=== PATIENT | male | born 1990 | race Caucasian/White ===

== ENCOUNTER 2017-06-11 06:25 | Emergency (ER) | payer SELFPAY ==
--- NOTE | 2017-06-11 06:36 | EDM.PDOC ---
ED HPI GENERAL MEDICAL PROBLEM - General Stated Complaint: FACE PAIN Time Seen by Provider: 06/11/17 06:36 - History of Present Illness INITIAL COMMENTS - FREE TEXT/NARRATIVE: HISTORY AND PHYSICAL: History of present illness: Patient's 26-year-old white male presents for a concern of dental pain this is somewhat generalized patient states he is scheduled to have oral surgery and multiple tooth extractions related to periodontal and gentle dental disease he' s had no fever chills nausea vomiting no other complaints. Review of systems: As per history of present illness and below otherwise all systems reviewed and negative. Past medical history: As per history of present illness and as reviewed below otherwise noncontributory. Surgical history: As per history of present illness and as reviewed below otherwise noncontributory. Social history: No reported history of drug or alcohol abuse. Family history: As per history of present illness and as reviewed below otherwise noncontributory. Physical exam: HEENT: Atraumatic, normocephalic, pupils reactive, negative for conjunctival pallor or scleral icterus, mucous membranes moist, throat clear, neck supple, nontender, trachea midline. Patient has generally poor dentition with multiple dental caries Lungs: Clear to auscultation, breath sounds equal bilaterally, chest nontender. Heart: S1S2, regular, negative for clicks, rubs, or JVD. Abdomen: Soft, nondistended, nontender. Negative for masses or hepatosplenomegaly. Negative for costovertebral tenderness. Pelvis: Stable nontender. Genitourinary: Deferred. Rectal: Deferred. Extremities: Atraumatic, negative for cords or calf pain. Neurovascular unremarkable. Neuro: Awake, alert, oriented. Cranial nerves II through XII unremarkable. Cerebellum unremarkable. Motor and sensory unremarkable throughout. Exam nonfocal. Diagnostics: None Therapeutics: None Impression: #1 dentalgia #2 dental caries #3 rule out dental abscess Definitive disposition and diagnosis as appropriate pending reevaluation and review of above. - Related Data Allergies Allergy/AdvReac Type Severity Reaction Status Date / Time No Known Allergies Allergy Verified 11/04/16 10:13 Home Meds: Home Meds . [No Known Home Meds] 04/24/14 [History] Past Medical History HEENT History: Reports: None - Past Surgical History HEENT Surgical History: Reports: Adenoidectomy Social & Family History - Family History Family Medical History: Noncontributory - Tobacco Use Smoking Status *Q: Current Every Day Smoker Years of Tobacco use: 7 Packs/Tins Daily: 1 Used Tobacco, but Quit: Yes Month Tobacco Last Used: April Second Hand Smoke Exposure: No - Caffeine Use Caffeine Use: Reports: Soda Caffeine Use Comment: que villanueva 12 pack/day - Alcohol Use Days Per Week of Alcohol Use: 2 Number of Drinks Per Day: 7 Total Drinks Per Week: 14 - Recreational Drug Use Recreational Drug Use: No ED ROS GENERAL - Review of Systems Review Of Systems: ROS reveals no pertinent complaints other than HPI. ED EXAM, GENERAL - Physical Exam Exam: See Below (See dictation) Departure - Departure Time of Disposition: 06:35 Disposition: Home, Self-Care 01 Condition: Good Clinical Impression: Dentalgia, Dental caries, Dental infection - Discharge Information Referrals: PCP,None [Primary Care Provider] - Additional Instructions: The following information is given to patients seen in the emergency department who are being discharged to home. This information is to outline your options for follow-up care. We provide all patients seen in our emergency department with a follow-up referral. The need for follow-up, as well as the timing and circumstances, are variable depending upon the specifics of your emergency department visit. If you don't have a primary care physician on staff, we will provide you with a referral. We always advise you to contact your personal physician following an emergency department visit to inform them of the circumstance of the visit and for follow-up with them and/or the need for any referrals to a consulting specialist. The emergency department will also refer you to a specialist when appropriate. This referral assures that you have the opportunity for followup care with a specialist. All of these measure are taken in an effort to provide you with optimal care, which includes your followup. Under all circumstances we always encourage you to contact your private physician who remains a resource for coordinating your care. When calling for followup care, please make the office aware that this follow-up is from your recent emergency room visit. If for any reason you are refused follow-up, please contact the [facility] emergency department at and asked to speak to the emergency department charge nurse. Follow-up dentist/oral surgery is scheduled Augmentin is prescribed Motrin or Tylenol as directed return as needed as discussed]
[2017-06-11 06:40] VITALS: BP 125/64
== END 2017-06-11 06:49 | disposition home or self-care (01) ==
LOC: MW.ED 06:25
DX: K02.9 Dental caries, unspecified (principal); K04.7 Periapical abscess without sinus; F17.210 Nicotine dependence, cigarettes, uncomplicated; Z98.890 Other specified postprocedural states
CPT/HCPCS: 99282

== ENCOUNTER 2017-09-01 04:14 | Emergency (ER) | payer OTHER ==
--- NOTE | 2017-09-01 05:21 | EDM.PDOC ---
ED HPI GENERAL MEDICAL PROBLEM - General Chief Complaint: Upper Extremity Injury/Pain Stated Complaint: SHOULDERS LOCK UP Time Seen by Provider: 09/01/17 05:19 - History of Present Illness INITIAL COMMENTS - FREE TEXT/NARRATIVE: HISTORY AND PHYSICAL: History of present illness: Past 26-year-old male presents with concern of bilateral shoulder pain he denies trauma or other concern Review of systems: As per history of present illness and below otherwise all systems reviewed and negative. Past medical history: As per history of present illness and as reviewed below otherwise noncontributory. Surgical history: As per history of present illness and as reviewed below otherwise noncontributory. Social history: No reported history of drug or alcohol abuse. Family history: As per history of present illness and as reviewed below otherwise noncontributory. Physical exam: HEENT: Atraumatic, normocephalic, pupils reactive, negative for conjunctival pallor or scleral icterus, mucous membranes moist, throat clear, neck supple, nontender, trachea midline. Lungs: Clear to auscultation, breath sounds equal bilaterally, chest nontender. Heart: S1S2, regular, negative for clicks, rubs, or JVD. Abdomen: Soft, nondistended, nontender. Negative for masses or hepatosplenomegaly. Negative for costovertebral tenderness. Pelvis: Stable nontender. Genitourinary: Deferred. Rectal: Deferred. Extremities: Atraumatic, no gross deformity no point tenderness no crepitation CMS neurovascular exam unremarkable bilaterally Neuro: Awake, alert, oriented. Cranial nerves II through XII unremarkable. Cerebellum unremarkable. Motor and sensory unremarkable throughout. Exam nonfocal. Diagnostics: X-ray bilateral shoulder Therapeutics: Sling as directed Impression: #1 bilateral shoulder pain etiology be determined Definitive disposition and diagnosis as appropriate pending reevaluation and review of above. Bilateral Shoulder Pain Score (Numeric/FACES): 8 - Related Data Allergies Allergy/AdvReac Type Severity Reaction Status Date / Time No Known Allergies Allergy Verified 09/01/17 04:32 Home Meds: Home Meds . [No Known Home Meds] 04/24/14 [History] Past Medical History - Past Health History Medical/Surgical History: Denies Medical/Surgical History HEENT History: Reports: None - Past Surgical History HEENT Surgical History: Reports: Oral Surgery Social & Family History - Family History Family Medical History: Noncontributory - Tobacco Use Smoking Status *Q: Current Every Day Smoker Years of Tobacco use: 8 Packs/Tins Daily: 0.5 Used Tobacco, but Quit: Yes Month Tobacco Last Used: April Second Hand Smoke Exposure: No - Caffeine Use Caffeine Use: Reports: None Caffeine Use Comment: que villanueva 12 pack/day - Alcohol Use Days Per Week of Alcohol Use: 2 Number of Drinks Per Day: 7 Total Drinks Per Week: 14 - Recreational Drug Use Recreational Drug Use: No Review of Systems - Review of Systems Review Of Systems: ROS reveals no pertinent complaints other than HPI. ED EXAM, GENERAL - Physical Exam Exam: See Below (See dictation) Course - Vital Signs Last Recorded V/S: Last Vital Signs Temp 36.8 C 09/01/17 04:25 Pulse 85 09/01/17 04:25 Resp 18 09/01/17 04:25 BP 125/83 09/01/17 04:25 Pulse Ox 98 09/01/17 04:25 - Orders/Labs/Meds Orders: Active Orders 24 hr Category Date Time Status Shoulder Comp Lt [CR] Stat Exams 09/01/17 04:23 Taken Shoulder Comp Rt [CR] Stat Exams 09/01/17 04:23 Taken Departure - Departure Time of Disposition: 05:20 Disposition: Home, Self-Care 01 Condition: Good Clinical Impression: Shoulder pain - Discharge Information Referrals: PCP,None [Primary Care Provider] - Additional Instructions: The following information is given to patients seen in the emergency department who are being discharged to home. This information is to outline your options for follow-up care. We provide all patients seen in our emergency department with a follow-up referral. The need for follow-up, as well as the timing and circumstances, are variable depending upon the specifics of your emergency department visit. If you don't have a primary care physician on staff, we will provide you with a referral. We always advise you to contact your personal physician following an emergency department visit to inform them of the circumstance of the visit and for follow-up with them and/or the need for any referrals to a consulting specialist. The emergency department will also refer you to a specialist when appropriate. This referral assures that you have the opportunity for followup care with a specialist. All of these measure are taken in an effort to provide you with optimal care, which includes your followup. Under all circumstances we always encourage you to contact your private physician who remains a resource for coordinating your care. When calling for followup care, please make the office aware that this follow-up is from your recent emergency room visit. If for any reason you are refused follow-up, please contact the [facility] emergency department at and asked to speak to the emergency department charge nurse. [facility] [address], [address] [place] [address] Motrin/Tylenol as directed follow-up orthopedic clinic call for routine appointment return as needed as discussed sling as directed] - My Orders Last 24 Hours: My Active Orders 09/01/17 04:23 Shoulder Comp Lt [CR] Stat Shoulder Comp Rt [CR] Stat - Assessment/Plan Last 24 Hours: My Active Orders 09/01/17 04:23 Shoulder Comp Lt [CR] Stat Shoulder Comp Rt [CR] Stat
[2017-09-01 05:36] VITALS: BP 117/85
--- NOTE | 2017-09-01 11:26 | CR ---
EXAM DATE: 09/01/17 PATIENT'S AGE: 26 Patient: LEONARDA CONLEY Facility: [place], [place] Site . Site : 1990 Study: XRay Shoulder Left [id number]/29/2017 5:00:51 AM Ordering Physician: Doctor Lara Final Report: INDICATION: PAIN, NO INJURY TECHNIQUE: Left shoulder 3 views. COMPARISON: None. FINDINGS: Bones: Alignment is normal. No fractures or bone lesions. Joint spaces: Unremarkable. Soft tissues: Unremarkable. IMPRESSION: Unremarkable left shoulder. Dictated by: Jd Dueñas MD @ 09/01/2017 05:06:20 (Electronic Signature) Report Signed by Proxy. YANDEL
--- NOTE | 2017-09-01 11:27 | CR ---
EXAM DATE: 09/01/17 PATIENT'S AGE: 26 Patient: LEONARDA CONLEY Facility: [place], [place] Site . Site : 1990 Study: XRay Shoulder Right [id number]/29/2017 5:01:10 AM Ordering Physician: Doctor Lara Final Report: INDICATION: PAIN, NO INJURY TECHNIQUE: Right shoulder 3 views COMPARISON: None. FINDINGS: Bones: Alignment is normal. No fractures or bone lesions. Joint spaces: Unremarkable. Soft tissues: Unremarkable. IMPRESSION: Unremarkable right shoulder. Dictated by: Jd Dueñas MD @ 09/01/2017 05:07:05 (Electronic Signature) Report Signed by Proxy. YANDEL
== END 2017-09-01 05:28 | disposition home or self-care (01) ==
LOC: MW.ED 04:14
DX: M25.511 Pain in right shoulder (principal); M25.512 Pain in left shoulder; F17.210 Nicotine dependence, cigarettes, uncomplicated
CPT/HCPCS: 73030; 99283; A4566; 99282

== ENCOUNTER 2018-03-26 13:11 | Emergency (ER) | payer OTHER ==
[2018-03-26] MEDS ORDERED: Lidocaine 1% 20 ML MDV INJECT ONE (13:17)
[2018-03-26] MEDS ORDERED: Bupivacaine 0.5% 10 ML SDV INJECT ONE (13:17)
--- NOTE | 2018-03-26 13:20 | EDM.PDOC ---
ED HPI GENERAL MEDICAL PROBLEM - General Chief Complaint: Laceration Stated Complaint: CUT FINGER Time Seen by Provider: 03/26/18 13:12 Source of Information: Reports: Patient History Limitations: Reports: No Limitations - History of Present Illness INITIAL COMMENTS - FREE TEXT/NARRATIVE: History of present illness: []Patient cut his left index finger on a chain link fence prior to arrival. Patient's last tetanus shot was 4 years ago. He denies any other injury. Patient is refusing sutures states he will allow me to glue his laceration. Review of systems: As per history of present illness and below otherwise all systems reviewed and negative. Past medical history: As per history of present illness and as reviewed below otherwise noncontributory. Surgical history: As per history of present illness and as reviewed below otherwise noncontributory. Social history: No reported history of drug or alcohol abuse. Family history: As per history of present illness and as reviewed below otherwise noncontributory. Physical exam: General: Well developed, well nourished in NAD HEENT: Atraumatic, normocephalic, pupils reactive, negative for conjunctival pallor or scleral icterus, mucous membranes moist, throat clear, neck supple, nontender, trachea midline. Lungs: Clear to auscultation, breath sounds equal bilaterally, chest nontender. Heart: S1S2, regular, negative for clicks, rubs, or JVD. Abdomen: Soft, nondistended, nontender. Negative for masses or hepatosplenomegaly. Negative for costovertebral tenderness. Pelvis: Stable nontender. Genitourinary: Deferred. Rectal: Deferred. Extremities: Left index finger 1 cm flap superficial laceration, negative for cords or calf pain. Neurovascular unremarkable. Neuro: Awake, alert, oriented. Cranial nerves II through XII unremarkable. Cerebellum unremarkable. Motor and sensory unremarkable throughout. Exam nonfocal. Diagnostics: [] Therapeutics: []Patient refused sutures but accepted wound adhesive. Impression: []Laceration left index finger 1 cm Plan: []Keep wound dry for 24 hours, keep covered while working keep splint on for one week. Keflex as directed, Return if symptoms worsen or change Since patient works for the [employer] and the wound is partially included and cannot use antibiotic ointment he is put on Keflex. Definitive disposition and diagnosis as appropriate pending reevaluation and review of above. left index finger Pain Score (Numeric/FACES): 3 - Related Data Allergies Allergy/AdvReac Type Severity Reaction Status Date / Time No Known Allergies Allergy Verified 03/26/18 13:18 Home Meds: Home Meds Cephalexin [Keflex] 500 mg PO Q8H #21 cap 03/26/18 [Rx] Past Medical History - Past Health History Medical/Surgical History: Denies Medical/Surgical History HEENT History: Reports: None - Past Surgical History HEENT Surgical History: Reports: Oral Surgery Social & Family History - Family History Family Medical History: Noncontributory - Caffeine Use Caffeine Use: Reports: None Caffeine Use Comment: mountain dew 12 pack/day ED ROS GENERAL - Review of Systems Review Of Systems: See Below (See history of present illness) ED EXAM, SKIN/RASH Exam: See Below (See history of present illness) ED SKIN PROCEDURES - Laceration/Wound Repair Left Finger Lac/Wound length In cm: 1 Appearance: Subcutaneous, Mildly Contaminated Distal NVT: Neuro & Vascular Intact Anesthetic Type: Topical Skin Prep: Chlorhexidine (Hibiciens), Saline Closed with: Dermabond Drain Placement: No Sterile Dressing Applied: Nurse Tetanus Status Addressed: Yes Complications: No Course - Vital Signs Last Recorded V/S: Last Vital Signs Temp 97.8 F 03/26/18 13:19 Pulse 69 03/26/18 13:19 Resp 18 03/26/18 13:19 BP 138/86 03/26/18 13:19 Pulse Ox 95 03/26/18 13:19 - Orders/Labs/Meds Orders: Active Orders 24 hr Category Date Time Status Splinting [RC] ASDIRECTED Care 03/26/18 13:33 Active Meds: Medications Discontinued Medications Generic Name Dose Route Start Last Admin Trade Name Freq PRN Reason Stop Dose Admin Bupivacaine HCl 10 ml 03/26/18 13:17 03/26/18 13:35 Sensorcaine-Mpf 0.5% INJECT 03/26/18 13:18 Not Given ONETIME ONE Lidocaine HCl 5 ml 03/26/18 13:33 03/26/18 13:35 Xylocaine-Mpf 1% INJECT 03/26/18 13:34 Not Given ONETIME ONE Octyl Cyanoacrylate 1 applic 03/26/18 13:36 Dermabond Advance TOP 03/26/18 13:37 ONETIME ONE Octyl Cyanoacrylate Confirm 03/26/18 13:36 Dermabond Advance Administered 03/26/18 13:37 Dose 1 applic .ROUTE .STK-MED ONE Departure - Departure Time of Disposition: 13:54 Disposition: Home, Self-Care 01 Condition: Good Clinical Impression: Laceration of left index finger Qualifiers: Encounter type: initial encounter Damage to nail status: unspecified Foreign body presence: without foreign body Qualified Code(s): S61.211A - Laceration without foreign body of left index finger without damage to nail, initial encounter - Discharge Information Prescriptions: Cephalexin [Keflex] 500 mg PO Q8H #21 cap Instructions: Wound Care, Adult, Stitches, [place], or Adhesive Wound Closure Referrals: PCP,None [Primary Care Provider] - Forms: ED Department Discharge Additional Instructions: The following information is given to patients seen in the emergency department who are being discharged to home. This information is to outline your options for follow-up care. We provide all patients seen in our emergency department with a follow-up referral. The need for follow-up, as well as the timing and circumstances, are variable depending upon the specifics of your emergency department visit. If you don't have a primary care physician on staff, we will provide you with a referral. We always advise you to contact your personal physician following an emergency department visit to inform them of the circumstance of the visit and for follow-up with them and/or the need for any referrals to a consulting specialist. The emergency department will also refer you to a specialist when appropriate. This referral assures that you have the opportunity for follow-up care with a specialist. All of these measure are taken in an effort to provide you with optimal care, which includes your follow-up. Under all circumstances we always encourage you to contact your private physician who remains a resource for coordinating your care. When calling for follow-up care, please make the office aware that this follow-up is from your recent emergency room visit. If for any reason you are refused follow-up, please contact the [facility] Emergency Department at and asked to speak to the emergency department charge nurse. [facility] [address] [place] [id number] - My Orders Last 24 Hours: My Active Orders 03/26/18 13:33 Splinting [RC] ASDIRECTED - Assessment/Plan Last 24 Hours: My Active Orders 03/26/18 13:33 Splinting [RC] ASDIRECTED
[2018-03-26 13:21] VITALS: BP 138/86
[2018-03-26] MEDS ORDERED: Dermabond Prineo 1 Tube TOP ONE (13:32)
[2018-03-26] MEDS ORDERED: Octyl 2-Cyanoacrylate 1 Tube ONE (13:36)
[2018-03-26] MEDS ORDERED: Octyl 2-Cyanoacrylate 1 Tube TOP ONE (13:36)
== END 2018-03-26 14:14 | disposition home or self-care (01) ==
LOC: MW.ED 13:11
DX: S61.211A Laceration without foreign body of left index finger without damage to nail, initial encounter (principal); W45.8XXA Other foreign body or object entering through skin, initial encounter
CPT/HCPCS: 12001; 99282; A9270

== ENCOUNTER 2020-11-08 16:16 | Emergency (ER) | payer OTHER ==
[2020-11-08 16:28] VITALS: BP 138/88; PULSE 92
--- NOTE | 2020-11-08 16:31 | EDM.PDOC ---
ED HPI GENERAL MEDICAL PROBLEM - General Stated Complaint: LT SIDE MOUTH PAIN Time Seen by Provider: 11/08/20 16:23 Source of Information: Reports: Patient History Limitations: Reports: No Limitations - History of Present Illness INITIAL COMMENTS - FREE TEXT/NARRATIVE: HISTORY AND PHYSICAL: History of present illness: Patient is a 28-year-old male who presents to the emergency room with complaints of left posterior dental pain. He reports he recently had the right posterior molar removed as his wisdom tooth was growing into the root of the adjacent tooth causing an abscess. He states the left side was going to be removed as an outpatient, has a consult with maxillofacial next week. Today he was prescribed amoxicillin 1000 mg twice daily by his provider who previously took care of him. Reports he was frustrated as he does not have anything for the pain. Patient denies any fever, chills, headache, change in vision, syncope or near syncope. Denies any chest pain, back pain, shortness of breath or cough. Denies any abdominal pain, nausea, vomiting, diarrhea, constipation or dysuria. Has not noted any blood in urine or stool. Patient has been eating and drinking appropriately. Review of systems: As per history of present illness and below otherwise all systems reviewed and negative. Past medical history: As per history of present illness and as reviewed below otherwise noncontri butory. Surgical history: As per history of present illness and as reviewed below otherwise noncontributory. Social history: See social history for further information Family history: As per history of present illness and as reviewed below otherwise noncontributory. Physical exam: General: Well developed and well nourished. Alert and orientated x 3. Nontoxic in appearance and in no acute distress. Vital signs are stable and have been reviewed by me. Nursing notes were reviewed. HEENT: Atraumatic, normocephalic, pupils equal and reactive bilaterally, negative for conjunctival pallor or scleral icterus, mucous membranes moist, tenderness along the left posterior molar with mild erythema although no fluctuance or concern for an abscess at this time. TMs normal bilaterally, throat clear, neck supple, nontender, trachea midline. No drooling or trismus noted. No meningeal signs. No hot potato voice noted. Lungs: Clear to auscultation bilaterally. No wheezes, rales, or rhonchi. Chest nontender. Normal work of breathing, no accessory muscles used. Heart: S1S2, regular rate and rhythm without overt murmur, gallops, or rubs. No JVD. No peripheral edema Abdomen: Soft, nondistended, nontender. Normoactive bowel sounds. Negative for masses or costovertebral tenderness. Pelvis: Stable nontender. Genitourinary/Rectal: Deferred. Skin: Intact, warm, dry. No lesions or rashes noted. Hematologic: No petechiae or purpra. Mucosa appropriate color and normal nail bed color and refill. Extremities: Atraumatic, moves all extremities per self without difficulty or deficits, negative for cords or calf pain. Neurovascular unremarkable. Neuro: Awake, alert, oriented. Cranial nerves II through XII unremarkable. Cerebellum unremarkable. Motor and sensory unremarkable throughout. Exam non focal. Psychiatric: Mood and affect are appropriate. Normal thought process. Answering questions appropriately. Notes: *This patient was seen and evaluated during the 2019 SARS-CoV-2 novel coronavir us pandemic period. Community viral transmission is ongoing at time of this encounter and the emergency department is operating under pandemic response procedures. My physical exam is within normal limits. He does have documentation with him along with pictures of the wisdom teeth that are growing into the adjacent molar. We will give him a small amount of pain medication until he can follow-u p. Although he has a consult next week he states he is calling Dr. Disla Wednesday to see if he can be seen sooner. I have talked with the patient about today's findings, in addition to providing specific details for plan of care. The patient is stable for discharge, counseling was provided and we discussed in great detail signs and symptoms that would prompt them to return to the Emergency Department. Medication, follow up and supportive care measures were reviewed and discussed. Voices understanding and is agreeable to plan of care. Denies any further questions or concerns at this time. Diagnostics: None Therapeutics: None Prescription: Mcallen (#20) Impression: Dentalgia Plan: 1. Please continue to take the antibiotic as prescribed. 2. Tylenol and/or ibuprofen as needed for pain management. Mcallen for moderate to severe pain, this medication may cause drowsiness, so do not take while driving or needing to be functioning outside the house 3. Follow-up with a dentist for definitive care. Call Dr Resendez Wednesday and keep your Consult as arranged. 4. If symptoms should worsen or new symptoms develop please return to the emergency room as we discussed. Definitive disposition and diagnosis as appropriate pending reevaluation and review of above. Left Lower Tooth/Teeth Pain Score (Numeric/FACES): 8 - Related Data Allergies Allergy/AdvReac Type Severity Reaction Status Date / Time No Known Allergies Allergy Verified 11/08/20 16:28 Home Meds: Home Meds Acetaminophen/HYDROcodone [Mcallen 325-5 MG] 1 - 2 tab PO Q4H #20 tablet 11/08/20 [Rx] Amoxicillin 11/08/20 [History] Past Medical History - Past Health History Medical/Surgical History: Denies Medical/Surgical History HEENT History: Reports: None, Otitis Media Cardiovascular History: Reports: None Respiratory History: Reports: None Gastrointestinal History: Reports: None Genitourinary History: Reports: None Musculoskeletal History: Reports: None Neurological History: Reports: None Psychiatric History: Reports: None Endocrine/Metabolic History: Reports: None Hematologic History: Reports: None Immunologic History: Reports: None Oncologic (Cancer) History: Reports: None Dermatologic History: Reports: None - Infectious Disease History Infectious Disease History: Reports: Chicken Pox, Shingles - Past Surgical History Head Surgeries/Procedures: Reports: None HEENT Surgical History: Reports: Adenoidectomy, Oral Surgery Cardiovascular Surgical History: Reports: None Respiratory Surgical History: Reports: None GI Surgical History: Reports: None Male Surgical History: Reports: None Endocrine Surgical History: Reports: None Neurological Surgical History: Reports: None Musculoskeletal Surgical History: Reports: None Oncologic Surgical History: Reports: None Dermatological Surgical History: Reports: None Social & Family History - Family History Family Medical History: No Pertinent Family History - Caffeine Use Caffeine Use: Reports: Soda Caffeine Use Comment: mountain dedrake 12 pack/day ED ROS ENT - Review of Systems Review Of Systems: Comprehensive ROS is negative, except as noted in HPI. ED EXAM, ENT - Physical Exam Exam: See Below (See dictation) Course - Vital Signs Last Recorded V/S: Last Vital Signs Temp 97.8 F 11/08/20 16:17 Pulse 92 11/08/20 16:17 Resp 18 11/08/20 16:17 BP 138/88 11/08/20 16:17 Pulse Ox 95 11/08/20 16:17 Departure - Departure Time of Disposition: 16:31 Disposition: Home, Self-Care 01 Clinical Impression: Dentalgia - Discharge Information Prescriptions: Acetaminophen/HYDROcodone [Mcallen 325-5 MG] 1 - 2 tab PO Q4H #20 tablet Instructions: Dental Abscess, [id number] Referrals: PCP,None [Primary Care Provider] - Forms: ED Department Discharge Additional Instructions: The following information is given to patients seen in the emergency department who are being discharged to home. This information is to outline your options for follow-up care. We provide all patients seen in our emergency department with a follow-up referral. The need for follow-up, as well as the timing and circumstances, are variable depending upon the specifics of your emergency department visit. If you don't have a primary care physician on staff, we will provide you with a referral. We always advise you to contact your personal physician following an emergency department visit to inform them of the circumstance of the visit and for follow-up with them and/or the need for any referrals to a consulting specialist. The emergency department will also refer you to a specialist when appropriate. This referral assures that you have the opportunity for follow-up care with a specialist. All of these measure are taken in an effort to provide you with optimal care, which includes your follow-up. Under all circumstances we always encourage you to contact your private physician who remains a resource for coordinating your care. When calling for follow-up care, please make the office aware that this follow-up is from your recent emergency room visit. If for any reason you are refused follow-up, please contact the [facility] Emergency Department at and asked to speak to the emergency department charge nurse. [facility] [address] [place] [address] [id number] [address] [id number] Thank you for choosing the [facility] emergency department in [place] for your medical needs today. It was a pleasure caring for you. Today you were seen in the emergency department for dental pain. 1. Please continue to take the antibiotic as prescribed. 2. Tylenol and/or ibuprofen as needed for pain management. Mcallen for moderate to severe pain, this medication may cause drowsiness, so do not take while driving or needing to be functioning outside the house 3. Follow-up with a dentist for definitive care. Call Dr Resendez Wednesday and keep your Consult as arranged. 4. If symptoms should worsen or new symptoms develop please return to the emergency room as we discussed. Sepsis Event Note (ED) - Focused Exam Vital Signs: Vital Signs Temp Pulse Resp BP Pulse Ox 11/08/20 16:17 97.8 F 92 18 138/88 95
== END 2020-11-08 16:42 | disposition home or self-care (01) ==
LOC: MW.ED 16:16
DX: K08.89 Other specified disorders of teeth and supporting structures (principal)
CPT/HCPCS: 99282; 99283

== ENCOUNTER 2021-04-24 04:23 | Emergency (ER) | payer OTHER ==
[2021-04-24] MEDS ORDERED: Ketorolac 30 MG/ML SDV IVPUSH ONE (04:49)
[2021-04-24] MEDS ORDERED: Sodium Chloride 0.9% 10 ML Syringe FLUSH PRN (04:49)
[2021-04-24] MEDS ORDERED: Dexamethasone 10 MG/ML SDV IV ONE (04:49)
[2021-04-24] MEDS ORDERED: Sodium Chloride 0.9% 1,000 ML IV ONE (04:49)
[2021-04-24] MEDS ORDERED: Sodium Chloride 0.9% 2.5 ML Syringe FLUSH PRN (04:49)
[2021-04-24] MEDS ORDERED: Orphenadrine 60 MG/2 ML Inj IM ONE (04:51)
--- NOTE | 2021-04-24 05:10 | EDM.PDOC ---
ED HPI GENERAL MEDICAL PROBLEM - General Chief Complaint: Lower Extremity Injury/Pain Stated Complaint: MUSCLES ARE SEIZING UP (UNABLE TO MOVE) Time Seen by Provider: 04/24/21 04:38 - History of Present Illness INITIAL COMMENTS - FREE TEXT/NARRATIVE: HISTORY AND PHYSICAL: History of present illness: Is a 30year-old gentleman who presents to the ER today complaining of pain and discomfort in his lower extremities " locking up on him" for approximately 2 weeks and is now starting to have the same symptoms to his upper extremities. Patient reports that he feels like his muscles are cramping and spasming whenever he tries to move them and has a lot of pain and discomfort. Patient reports that he has a hard time getting out of bed and walking to the bathroom and is almost wet the bed twice over the last several days we have difficulty getting out of bed. Patient reports that he was seen and evaluated by his doctor and was started on nonsteroidal medications and was reassured. He reports that the symptoms continued and he called his doctor and he was told to write it out. Patient reports that this evening he was having a lot of pain and discomfort now in his shoulder elbows forearm. Patient reports he is having difficulty secondary to stiffness and cramping and not from pain. Patient has not had a coronavirus vaccine recently. Patient denies any recent fevers, shakes, chills, nausea, vomiting, diarrhea, dysuria, frequency, urgency. Patient reports that he has been drinking a lot of fluids and urinating a lot over the last several days. Patient denies any [id number] work-up supplements. Patient has no loss of bowel or bladder function. Patient has no paresthesias to his lower or upper extremities. Patient has no complaints of lower back pain. Patient has no complaints of upper back pain. Patient denies any recent trauma. Patient reports that he recently got approximately 1 week ago. 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 Patient reports that he would have a hard time lifting his lower extremities up into the truck. He reports that he can lifted up part way on his own and then gets stiff and that he has to use his hands to lift his lower extremities the rest of the way to get into his truck. Review of systems: As per history of present illness and below otherwise all systems reviewed and negative. Past medical history: As per history of present illness and as reviewed below otherwise noncontributory. Surgical history: As per history of present illness and as reviewed below otherwise noncontri butory. Social history: No reported history of drug abuse. Family history: As per history of present illness and as reviewed below otherwise noncontributory. Physical exam: This patient was seen and evaluated during the 2019 SARS-CoV-2 novel coronavirus pandemic period. Community viral transmission is ongoing at time of this encounter and the emergency department is operating under pandemic response procedures. Constitutional: Patient is oriented to person, place, and time. Appears well- developed and well-nourished. No distress. HEENT: Moist mucous membranes Head: Normocephalic and atraumatic Eyes: Right eye exhibits no discharge. Left eye exhibits no discharge. No scleral icterus Neck: Normal range of motion. No tracheal deviation present. Cardiovascular: Normal rate and regular rhythm. Pulmonary: Effort normal, no respiratory distress. Abdominal: No distention Musculoskeletal: Normal range of motion Neurologic: Alert and oriented to person, place and time. Skin: Powers, warm and dry. Psychiatric: Normal mood and affect. Behavior is normal. Judgment and thought content normal. Nursing note and vital signs have been reviewed Patient's ER physical exam is significant for an essentially normal exam on visual inspection. Patient has no rash. Patient has no swelling or warmth to the lower extremities. Patient has no joint effusions swelling or redness. Patient has no pain or discomfort with palpation. Patient reports he only has pain when he is attempting to move on his own. Patient did ambulate in the ED but with a very stiff gait. Patient is able to walk in a penguin like movement without bending his knees but he is able to move his lower extremities by flexing and extending his hip muscles. Patient is able to stand on his toes. Patient has no paresthesias. Diagnostics: [] Therapeutics: [] Assessment and plan: This is a 30-year-old gentleman who presents ER today complaining of stiffness and cramping to the muscles in his lower extremities making it difficult for him to walk and move. Patient reports the stiffness and cramping is causing lot of pain and discomfort whenever he tries to stand up or walk around. Patient pre sents ER this evening concerned because now he is starting to have the same type of symptoms in his upper extremities as well. Patient denies any increased exertion or stress. Patient reports that he recently got approximately 1 week ago. Given the limitations of what we can do in the ED, I have discussed with the patient that we will put an IV in him and will check all his electrolytes including sodium, potassium, magnesium, calcium. We will also check a CPK as well as a procalcitonin. We will also get a TSH and liver enzymes as well. Patient will be given a dose of Decadron in the ED as well as Toradol and Flexeril and will be reevaluated. 6:16 AM: Patient's labs were all within normal limits. Patient does have an elevated CRP but other than that his TSH, blood sugar, CPK, CBC, electrolytes including magnesium potassium are all within normal limits. Patient has been given a dose of Decadron, Toradol, Flexeril here in the ED and he does feel much better. Patient was able to stand up from the chair without any difficulty at 6:10 AM. Patient reports that the discomfort in his shoulders have almost completely resolved and he feels much better. I have discussed with the patient that he will need to follow-up with his primary care physician for possible referral to see a paying teller given the elevated CRP. Patient will be discharged home with a prescription for ibuprofen, Flexeril, prednisone. Definitive disposition and diagnosis as appropriate pending reevaluation and review of above. Bilateral Leg Pain Score (Numeric/FACES): 8 - Related Data Allergies Allergy/AdvReac Type Severity Reaction Status Date / Time No Known Allergies Allergy Verified 04/24/21 04:31 Home Meds: Home Meds Cyclobenzaprine [Flexeril] 10 mg PO TID PRN #20 tab 04/24/21 [Rx] Diclofenac Sodium [Voltaren] 50 mg PO TID 04/24/21 [History] Ibuprofen 600 mg PO Q6HR PRN #30 tablet 04/24/21 [Rx] predniSONE [Prednisone] 50 mg PO DAILY #5 tablet 04/24/21 [Rx] Past Medical History - Past Health History Medical/Surgical History: Denies Medical/Surgical History HEENT History: Reports: None, Otitis Media Cardiovascular History: Reports: None Respiratory History: Reports: None Gastrointestinal History: Reports: None Genitourinary History: Reports: None Musculoskeletal History: Reports: None Neurological History: Reports: None Psychiatric History: Reports: None Endocrine/Metabolic History: Reports: None Hematologic History: Reports: None Immunologic History: Reports: None Oncologic (Cancer) History: Reports: None Dermatologic History: Reports: None - Infectious Disease History Infectious Disease History: Reports: Chicken Pox, Shingles - Past Surgical History Head Surgeries/Procedures: Reports: None HEENT Surgical History: Reports: Adenoidectomy, Oral Surgery Cardiovascular Surgical History: Reports: None Respiratory Surgical History: Reports: None GI Surgical History: Reports: None Male Surgical History: Reports: None Endocrine Surgical History: Reports: None Neurological Surgical History: Reports: None Musculoskeletal Surgical History: Reports: None Oncologic Surgical History: Reports: None Dermatological Surgical History: Reports: None Social & Family History - Family History Family Medical History: No Pertinent Family History - Tobacco Use Tobacco Use Status *Q: Never Tobacco User - Caffeine Use Caffeine Use: Reports: None Caffeine Use Comment: mountain dew 12 pack/day - Recreational Drug Use Recreational Drug Use: No Review of Systems - Review of Systems Review Of Systems: See Below ED EXAM, GENERAL - Physical Exam Exam: See Below Course - Vital Signs Last Recorded V/S: Last Vital Signs Temp 97.1 F 04/24/21 04:33 Pulse 85 04/24/21 04:33 Resp 17 04/24/21 04:33 BP 137/91 H 04/24/21 04:33 Pulse Ox 96 04/24/21 04:33 - Orders/Labs/Meds Orders: Active Orders 24 hr Category Date Time Status UA W/DESTNII RFLX IF INDICATED [URIN] Stat Lab 04/24/21 04:50 Ordered Sodium Chloride 0.9% [Saline Flush] Med 04/24/21 04:49 Active 10 ml FLUSH ASDIRECTED PRN Sodium Chloride 0.9% [Saline Flush] Med 04/24/21 04:49 Active 2.5 ml FLUSH ASDIRECTED PRN Saline Lock Insert [OM.PC] Stat Oth 04/24/21 04:49 Ordered Medication Orders Sodium Chloride (Sodium Chloride 0.9% 10 Ml Syringe) 10 ml FLUSH ASDIRECTED PRN PRN Reason: Keep Vein Open Last Admin: 04/24/21 05:08 Dose: 10 ml Documented by: LEESA Sodium Chloride (Sodium Chloride 0.9% 2.5 Ml Syringe) 2.5 ml FLUSH ASDIRECTED PRN PRN Reason: Keep Vein Open Last Admin: 04/24/21 05:08 Dose: 2.5 ml Documented by: LEESA Labs: Laboratory Tests 04/24/21 04/24/21 Range/Units 05:00 05:00 WBC 7.23 (4.0-11.0) K/uL RBC 5.19 (4.50-5.90) M/uL Hgb 14.3 (13.0-17.0) g/dL Hct 43.0 (38.0-50.0) % MCV 82.9 (80.0-98.0) fL MCH 27.6 (27.0-32.0) pg MCHC 33.3 (31.0-37.0) g/dL RDW Std Deviation 40.4 (28.0-62.0) fl RDW Coeff of Carla 13 (11.0-15.0) % Plt Count 334 (150-400) K/uL MPV 9.70 (7.40-12.00) fL Neut % (Auto) 59.3 (48.0-80.0) % Lymph % (Auto) 32.2 (16.0-40.0) % Hanson % (Auto) 6.9 (0.0-15.0) % Eos % (Auto) 1.5 (0.0-7.0) % Baso % (Auto) 0.1 (0.0-1.5) % Neut # (Auto) 4.3 (1.4-5.7) K/uL Lymph # (Auto) 2.3 (0.6-2.4) K/uL Hanson # (Auto) 0.5 (0.0-0.8) K/uL Eos # (Auto) 0.1 (0.0-0.7) K/uL Baso # (Auto) 0.0 (0.0-0.1) K/uL Nucleated RBC % 0.0 /100WBC Nucleated RBCs # 0 K/uL Sodium 139 (136-148) mmol/L Potassium 3.8 (3.5-5.1) mmol/L Chloride 102 (98-107) mmol/L Carbon Dioxide 26.0 (21.0-32.0) mmol/L BUN 11 (7.0-18.0) mg/dL Creatinine 1.0 (0.8-1.3) mg/dL Est Cr Clr Drug Dosing 120.71 mL/min Estimated GFR (MDRD) > 60.0 ml/min Glucose 106 (74-106) mg/dL Calcium 9.3 (8.5-10.1) mg/dL Magnesium 1.7 L (1.8-2.4) mg/dL Total Bilirubin 0.2 (0.2-1.0) mg/dL AST 34 (15-37) IU/L ALT 70 H (14-63) IU/L Alkaline Phosphatase 86 (46-116) U/L Creatine Kinase 75 (26-308) U/L C-Reactive Protein 4.40 H (0.00-0.90) mg/dL Total Protein 7.5 (6.4-8.2) g/dL Albumin 3.5 (3.4-5.0) g/dL Globulin 4.0 (2.6-4.0) g/dL Albumin/Globulin Ratio 0.9 (0.9-1.6) TSH, Ultra Sensitive 1.65 (0.36-3.74) uIU/mL Meds: Medications Generic Name Dose Route Start Last Admin Trade Name Freq PRN Reason Stop Dose Admin Sodium Chloride 10 ml 04/24/21 04:49 04/24/21 05:08 Sodium Chloride 0.9% 10 Ml Syringe FLUSH 10 ml ASDIRECTED PRN Administration Keep Vein Open Sodium Chloride 2.5 ml 04/24/21 04:49 04/24/21 05:08 Sodium Chloride 0.9% 2.5 Ml Syringe FLUSH 2.5 ml ASDIRECTED PRN Administration Keep Vein Open Discontinued Medications Generic Name Dose Route Start Last Admin Trade Name Freq PRN Reason Stop Dose Admin Dexamethasone 10 mg 04/24/21 04:49 04/24/21 05:06 Dexamethasone 10 Mg/Ml Sdv IV 04/24/21 04:50 10 mg ONETIME ONE Administration Sodium Chloride 1,000 mls @ 999 mls/hr 04/24/21 04:49 04/24/21 05:05 Normal Saline IV 04/24/21 05:49 999 mls/hr .Bolus ONE Administration Ketorolac Tromethamine 30 mg 04/24/21 04:49 04/24/21 05:09 Ketorolac 30 Mg/Ml Sdv IVPUSH 04/24/21 04:50 30 mg ONETIME ONE Administration Orphenadrine Citrate 60 mg 04/24/21 04:51 04/24/21 05:09 Orphenadrine 60 Mg/2 Ml Inj IM 04/24/21 04:52 60 mg ONETIME ONE Administration Departure - Departure Time of Disposition: 06:17 Disposition: Home, Self-Care 01 Condition: Good Clinical Impression: Muscle spasm, Myofascial pain - Discharge Information Instructions: Muscle Cramps and Spasms, [id number], Hip Pain, Muscle Pain, Adult Referrals: Tunde Soni PA [Primary Care Provider] - Forms: ED Department Discharge Additional Instructions: You were seen and evaluated in the ER today secondary to muscle pains and cramping. The etiology of your symptoms is unclear. The work-up in the emergency department was all within normal limits except for an elevated CRP level. You will be discharged home with a prescription for ibuprofen, Flexeril and a short course of steroids to see if that might assist you. Please make an appointment see your family doctor in the next 1 to 2 days for reevaluation and possible referral to see a paying teller. The following information is given to patients seen in the emergency department who are being discharged to home. This information is to outline your options for follow-up care. We provide all patients seen in our emergency department with a follow-up referral. The need for follow-up, as well as the timing and circumstances, are variable depending upon the specifics of your emergency department visit. If you don't have a primary care physician on staff, we will provide you with a referral. We always advise you to contact your personal physician following an emergency department visit to inform them of the circumstance of the visit and for follow-up with them and/or the need for any referrals to a consulting specialist. The emergency department will also refer you to a specialist when appropriate. This referral assures that you have the opportunity for follow-up care with a specialist. All of these measure are taken in an effort to provide you with optimal care, which includes your follow-up. Under all circumstances we always encourage you to contact your private physician who remains a resource for coordinating your care. When calling for follow-up care, please make the office aware that this follow-up is from your recent emergency room visit. If for any reason you are refused follow-up, please contact the [facility] Emergency Department at and asked to speak to the emergency department charge nurse. [facility] - Primary [facility] [address] [place] [address] [facility] [address] [place] [address] Sepsis Event Note (ED) - Evaluation Sepsis Screening Result: No Definite Risk - Focused Exam Vital Signs: Vital Signs Temp Pulse Resp BP Pulse Ox 04/24/21 04:33 97.1 F 85 17 137/91 H 96 - My Orders Last 24 Hours: My Active Orders 04/24/21 04:49 Sodium Chloride 0.9% [Saline Flush] 10 ml FLUSH ASDIRECTED PRN Sodium Chloride 0.9% [Saline Flush] 2.5 ml FLUSH ASDIRECTED PRN Saline Lock Insert [OM.PC] Stat 04/24/21 04:50 UA W/DESTINI RFLX IF INDICATED [URIN] Stat - Assessment/Plan Last 24 Hours: My Active Orders 04/24/21 04:49 Sodium Chloride 0.9% [Saline Flush] 10 ml FLUSH ASDIRECTED PRN Sodium Chloride 0.9% [Saline Flush] 2.5 ml FLUSH ASDIRECTED PRN Saline Lock Insert [OM.PC] Stat 04/24/21 04:50 UA W/DESTINI RFLX IF INDICATED [URIN] Stat
[2021-04-24 05:52] LABS: BLOOD UREA NITROGEN,BUN 11 mg/dL (7.0-18.0); CHLORIDE,CL 102 mmol/L (98-107); GLUCOSE RANDOM 106 mg/dL (74-106); POTASSIUM,K 3.8 mmol/L (3.5-5.1); SODIUM,NA 139 mmol/L (136-148)
[2021-04-24 06:37] VITALS: BP 126/79; PULSE 73
== END 2021-04-24 06:39 | disposition home or self-care (01) ==
LOC: MW.ED 04:23
DX: M62.838 Other muscle spasm (principal)
CPT/HCPCS: 36415; 80053; 82550; 83735; 84443; 85025; 86140; 96372; 96374; 96375; 99283; J1100; J1885; J2360; J7030